=== PATIENT | female | born 1960 ===

== ENCOUNTER 2021-04-17 14:59 | Emergency (ER) | payer MEDICAID, OTHER ==
[~2021-04-17] VITALS: Ht 162.6 cm; Wt 75.7 kg
[2021-04-17 15:02] VITALS: BP 142/63
== END 2021-04-17 19:03 | disposition left against medical advice (07) ==
LOC: ER 14:59
DX: R51.9 Headache, unspecified (principal); R42 Dizziness and giddiness; Z53.21 Procedure and treatment not carried out due to patient leaving prior to being seen by health care provider; W19.XXXA Unspecified fall, initial encounter; Y93.89 Activity, other specified; Y92.89 Other specified places as the place of occurrence of the external cause; Y99.8 Other external cause status
CPT/HCPCS: 70450